=== PATIENT | female | born 1950 | race Caucasian/White ===

== ENCOUNTER 2018-12-02 07:53 | Inpatient (IN) | payer MEDICARE ==
[2018-12-02] MEDS: SODIUM CHLORIDE 0.9% 1L BAG IV* (08:22)
[2018-12-02] MEDS: ONDANSETRON 4 MG INJ IV (08:30)
[2018-12-02 08:34] LABS: WHITE BLOOD COUNT 13.9 10^3/ul (4.8-10.8)
[2018-12-02 08:34] LABS: HEMATOCRIT 58.7 % (37.0-47.0); HEMOGLOBIN 17.6 g/dl (12.0-16.0); MEAN CORPUSCULAR VOLUME 86.7 fl (82.0-101.0); MEAN PLATELET VOLUME 9.7 fl (7.4-10.4); NUCLEATED RED BLOOD CELLS% 0.3 /100WBC (0.0-0.0); PLATELET COUNT 369 10^3/UL (140-415); RED BLOOD COUNT 6.77 10^6/ul (4.20-5.40); RED CELL DISTRIBUTION WIDTH 20.1 % (11.5-14.5)
[2018-12-02 08:42] LABS: ADD MAN DIFF? YES; POSITIVE DIFF @See below
[2018-12-02 08:57] LABS: ALANINE AMINOTRANSFERASE 192 IU/L (13-69); ALBUMIN 4.2 g/dl (3.3-4.9); ALBUMIN/GLOBULIN RATIO 1.16; ALKALINE PHOSPHATASE 155 IU/L (42-121); ANION GAP 19 (5-13); ASPARTATE AMINO TRANSFERASE 293 IU/L (15-46); BILIRUBIN,INDIRECT 0.3 mg/dl (0-1.1); BILIRUBIN,TOTAL 0.3 mg/dl (0.2-1.3); BLOOD UREA NITROGEN 19 mg/dl (7-20); CALCIUM 10.1 mg/dl (8.4-10.2); CARBON DIOXIDE 22 mmol/L (21-31); CHLORIDE 95 mmol/L (97-110); CREATININE 1.33 mg/dl (0.44-1.00); Estimated GFR 40 mL/min (>60); GLUCOSE 116 mg/dl (70-220); POTASSIUM 4.7 mmol/L (3.5-5.1); SODIUM 136 mmol/L (135-144); TOTAL PROTEIN 7.8 g/dl (6.1-8.1)
[2018-12-02 08:59] LABS: INR 1.08; PROTIME 14.1 Sec (11.9-14.9); PT RATIO 1.1
[2018-12-02 09:00] LABS: PARTIAL THROMBOPLASTIN TIME 34.2 Sec (23.0-35.0)
[2018-12-02 09:02] LABS: ADD UMIC YES; UR ASCORBIC ACID 20 mg/dL (NEGATIVE); UR BACTERIA FEW /HPF (NONE SEEN); UR BILIRUBIN (Dip) NEGATIVE (NEGATIVE); UR BLOOD (Dip) 1+ mg/dL (NEGATIVE); UR CLARITY CLOUDY (CLEAR); UR COLOR AMBER (YELLOW); UR GLUCOSE (Dip) NEGATIVE (NEGATIVE); UR KETONES (Dip) TRACE mg/dL (NEGATIVE); UR LEUKOCYTE ESTERASE (Dip) 1+ Leu/ul (NEGATIVE); UR NITRITE (Dip) NEGATIVE (NEGATIVE); UR RBC 25 /HPF (0-5); UR SPECIFIC GRAVITY (Dip) 1.026 (1.003-1.030); UR SQUAMOUS EPITHELIAL CELL MODERATE /HPF (FEW); UR TOTAL PROTEIN (Dip) NEGATIVE (NEGATIVE); UR UROBILINOGEN (Dip) 1+ mg/dL (NEGATIVE); UR WBC 16 /HPF (0-5)
[2018-12-02 09:09] LABS: TROPONIN-I 0.031 ng/ml (0.000-0.120)
[2018-12-02 09:12] LABS: ANISOCYTOSIS 1+ (0-0); BAND NEUTROPHILS #M 6.3 10^3/ul (0.0-0.6); BAND NEUTROPHILS % (M) 46 % (0-4); BURR CELLS 1+ (0-0); EOSINOPHILS % (M) 3 % (0-7); GIANT THROMBO% (M) 2 % (0-0); LYMPHOCYTES #M 0.2 10^3/ul (0.8-2.9); LYMPHOCYTES % (M) 2 % (15-51); METAMYELOCYTES #M 0.1 10^3/ul (0.0-0.0); METAMYELOCYTES %M 1 % (0-0); MONOCYTE #M 0.5 10^3/ul (0.3-0.9); MONOCYTES % (M) 4 % (0-11); PLATELET ESTIMATE NORMAL; POIKILOCYTOSIS 2+ (0-0); POLYCHROMASIA 1+ (0-0); SEGMENTED NEUTROPHILS (M) % 44 % (39-77); SMUDGE%M 7 % (0-0)
[2018-12-02] MEDS: LIDOCAINE 1% (MPF) 5 ML VIAL SC (09:30)
[2018-12-02] MEDS: CEFEPIME 2GM/50 ML (PMX) 50 ML IVPB (10:18)
[2018-12-02] MEDS: VANCOMYCIN 1 GM (PMX) 250 ML IVPB (10:34)
[2018-12-02] MEDS: NORepinephrine 8MG/250 ML (PMX 250 ML IV (11:31)
[2018-12-02] MEDS: FENTAnyl 50 MCG/ML VIAL IV (12:13)
[2018-12-02] MEDS ORDERED: NACL 0.9% 3 ML SYG IV (12:30)
[2018-12-02] MEDS ORDERED: VANCOMYCIN IV PER PHARMACY XX (12:30)
[2018-12-02] MEDS ORDERED: MAGNESIUM HYDROXIDE 30ML CUP PO (13:00)
[2018-12-02] MEDS ORDERED: ACETAMINOPHEN 325 MG TAB PO (13:00)
[2018-12-02] MEDS: SOD CHLORIDE 0.9% 1,000 ML IV ×4 (13:03→22:52)
[2018-12-02] MEDS: HYDROCORTISONE 100 MG INJ IV ×3 (13:03→21:30)
[2018-12-02] MEDS: oxyCODONE (CR) 20 MG TAB [oxyCONTIN] PO (13:28)
[2018-12-02] MEDS: MEROPENEM 1 GM/50ML(PMX) 50 ML IVPB (13:28)
[2018-12-02] MEDS: FAMOTIDINE 20 MG TAB PO (13:30)
[2018-12-02 16:33] LABS: LACTIC ACID 5.2 mmol/L (0.5-2.0)
[2018-12-02] MEDS: OXYCODONE/ACETAMINOPHEN (5/325) TAB PO (17:33)
[2018-12-02] MEDS ORDERED: AMIKACIN IV PER PHARMACY XX (18:00)
[2018-12-02] MEDS: morphine 4 MG/ML VIAL IV ×2 (18:07→23:52)
[2018-12-02] MEDS: AMIKACIN 500 MG in SOD CHLORIDE 0.9% 100 ML IVPB (19:50)
[2018-12-02] MEDS: HEPARIN 5,000 UNIT/1 ML VIAL SC (21:29)
[2018-12-02] MEDS: VANCOMYCIN HCL 1.25 GM in SOD CHLORIDE 0.9% 250 ML IVPB (22:52)
[2018-12-03] MEDS: MEROPENEM 1 GM/50ML(PMX) 50 ML IVPB ×2 (01:48→13:40)
[2018-12-03] MEDS: morphine 4 MG/ML VIAL IV ×4 (04:06→19:34)
[2018-12-03 05:18] LABS: ABNORMAL IP MESSAGE 1; HEMATOCRIT 41.3 % (37.0-47.0); HEMOGLOBIN 12.7 g/dl (12.0-16.0); MEAN CORPUSCULAR HEMOGLOBIN 26.2 pg (29.0-33.0); MEAN CORPUSCULAR HGB CONC 30.8 g/dl (32.0-37.0); MEAN CORPUSCULAR VOLUME 85.3 fl (82.0-101.0); MEAN PLATELET VOLUME 10.4 fl (7.4-10.4); PLATELET COUNT 199 10^3/UL (140-415); RED BLOOD COUNT 4.84 10^6/ul (4.20-5.40)
[2018-12-03 05:18] LABS: WHITE BLOOD COUNT 11.3 10^3/ul (4.8-10.8)
[2018-12-03] MEDS: ALPRAZOLAM 0.5 MG TAB PO (05:40)
[2018-12-03 05:53] LABS: ALANINE AMINOTRANSFERASE 130 IU/L (13-69); ALBUMIN 2.2 g/dl (3.3-4.9); ALBUMIN/GLOBULIN RATIO 0.81; ALKALINE PHOSPHATASE 99 IU/L (42-121); ANION GAP 8 (5-13); ASPARTATE AMINO TRANSFERASE 103 IU/L (15-46); BILIRUBIN,INDIRECT 0.1 mg/dl (0-1.1); BILIRUBIN,TOTAL 0.1 mg/dl (0.2-1.3); BLOOD UREA NITROGEN 17 mg/dl (7-20); CALCIUM 7.3 mg/dl (8.4-10.2); CARBON DIOXIDE 18 mmol/L (21-31); CHLORIDE 110 mmol/L (97-110); CREATININE 0.64 mg/dl (0.44-1.00); Estimated GFR > 60 mL/min (>60); GLUCOSE 109 mg/dl (70-220); POTASSIUM 4.4 mmol/L (3.5-5.1); SODIUM 136 mmol/L (135-144); TOTAL PROTEIN 4.9 g/dl (6.1-8.1)
[2018-12-03 06:26] LABS: ADD MAN DIFF? YES; POSITIVE DIFF @See below
[2018-12-03] MEDS: HYDROCORTISONE 100 MG INJ IV ×3 (06:31→21:43)
[2018-12-03 07:58] LABS: ANISOCYTOSIS 1+ (0-0); BAND NEUTROPHILS #M 2.7 10^3/ul (0.0-0.6); BAND NEUTROPHILS % (M) 24 % (0-4); BURR CELLS 2+ (0-0); EOSINOPHILS % (M) 2 % (0-7); GIANT THROMBO% (M) 1 % (0-0); LYMPHOCYTES #M 0.6 10^3/ul (0.8-2.9); LYMPHOCYTES % (M) 6 % (15-51); METAMYELOCYTES #M 0.1 10^3/ul (0.0-0.0); METAMYELOCYTES %M 1 % (0-0); MONOCYTE #M 0.2 10^3/ul (0.3-0.9); MONOCYTES % (M) 2 % (0-11); PLATELET ESTIMATE NORMAL; POIKILOCYTOSIS 2+ (0-0); POLYCHROMASIA 1+ (0-0); REACTIVE LYMPHOCYTES #M 0.1 10^3/ul (0.0-0.0); REACTIVE LYMPHOCYTES% (M) 1 % (0-0); SEG NEUT #M 7.5 10^3/ul (1.6-7.5); SEGMENTED NEUTROPHILS (M) % 64 % (39-77); SMUDGE%M 8 % (0-0); SPHEROCYTES 1+ (0-0)
[2018-12-03 08:18] LABS: HEMOGLOBIN A1C 6.3 % (0-5.9)
[2018-12-03] MEDS: SOD CHLORIDE 0.9% 1,000 ML IV ×2 (08:52→12:26)
[2018-12-03] MEDS: FAMOTIDINE 20 MG TAB PO (09:23)
[2018-12-03] MEDS: VENLAFAXINE (XR) 75 MG CAP PO (09:24)
[2018-12-03] MEDS: HEPARIN 5,000 UNIT/1 ML VIAL SC ×2 (09:25→21:05)
[2018-12-03] MEDS: VANCOMYCIN 1 GM 250 ML IVPB (12:18)
[2018-12-03] MEDS: DIPHENHYDRAMINE 50 MG INJ IV (15:22)
[2018-12-03] MEDS: oxyCODONE (CR) 20 MG TAB [oxyCONTIN] PO (21:49)
[2018-12-03] MEDS: DIPHENHYDRAMINE 50 MG CAP PO (22:12)
[2018-12-04] MEDS: VANCOMYCIN 1 GM 250 ML IVPB (00:25)
[2018-12-04] MEDS: ALPRAZOLAM 0.5 MG TAB PO ×2 (00:26→11:10)
[2018-12-04] MEDS: MEROPENEM 1 GM/50ML(PMX) 50 ML IVPB ×2 (02:43→13:39)
[2018-12-04] MEDS: SOD CHLORIDE 0.9% 1,000 ML IV (05:00)
[2018-12-04] MEDS: OXYCODONE/ACETAMINOPHEN (5/325) TAB PO (05:00)
[2018-12-04 05:04] LABS: ADD MAN DIFF? NO
[2018-12-04 05:10] LABS: BASOPHILS % 0.4 % (0.0-2.0); EOSINOPHILS # 0.1 10^3/ul (0.0-0.5); EOSINOPHILS % 1.2 % (0.0-7.0); HEMATOCRIT 36.2 % (37.0-47.0); HEMOGLOBIN 11.3 g/dl (12.0-16.0); LYMPHOCYTES % 12.2 % (15.0-51.0); MEAN CORPUSCULAR HGB CONC 31.2 g/dl (32.0-37.0); MEAN CORPUSCULAR VOLUME 83.2 fl (82.0-101.0); MEAN PLATELET VOLUME 10.7 fl (7.4-10.4); MONOCYTE # 0.7 10^3/ul (0.3-0.9); MONOCYTES % 8.7 % (0.0-11.0); NEUTROPHIL # 6.3 10^3/ul (1.6-7.5); NEUTROPHILS % 76.6 % (39.0-77.0); PLATELET COUNT 154 10^3/UL (140-415); RED BLOOD COUNT 4.35 10^6/ul (4.20-5.40); RED CELL DISTRIBUTION WIDTH 18.9 % (11.5-14.5)
[2018-12-04 05:10] LABS: WHITE BLOOD COUNT 8.2 10^3/ul (4.8-10.8)
[2018-12-04 05:29] LABS: ALANINE AMINOTRANSFERASE 90 IU/L (13-69); ALBUMIN 2.1 g/dl (3.3-4.9); ALBUMIN/GLOBULIN RATIO 0.87; ALKALINE PHOSPHATASE 76 IU/L (42-121); ANION GAP 3 (5-13); ASPARTATE AMINO TRANSFERASE 44 IU/L (15-46); BILIRUBIN,INDIRECT 0.1 mg/dl (0-1.1); BILIRUBIN,TOTAL 0.1 mg/dl (0.2-1.3); BLOOD UREA NITROGEN 14 mg/dl (7-20); CALCIUM 7.6 mg/dl (8.4-10.2); CARBON DIOXIDE 24 mmol/L (21-31); CHLORIDE 111 mmol/L (97-110); CREATININE 0.53 mg/dl (0.44-1.00); Estimated GFR > 60 mL/min (>60); GLUCOSE 106 mg/dl (70-220); SODIUM 138 mmol/L (135-144); TOTAL PROTEIN 4.5 g/dl (6.1-8.1)
[2018-12-04] MEDS: HYDROCORTISONE 100 MG INJ IV ×3 (05:44→22:57)
[2018-12-04] MEDS: FAMOTIDINE 20 MG TAB PO (08:06)
[2018-12-04] MEDS: HEPARIN 5,000 UNIT/1 ML VIAL SC ×2 (08:16→20:49)
[2018-12-04] MEDS: METHYLPHENIDATE 5 MG TAB PO (16:30)
[2018-12-04] MEDS: oxyCODONE (CR) 20 MG TAB [oxyCONTIN] PO (18:02)
[2018-12-05] MEDS: MEROPENEM 1 GM/50ML(PMX) 50 ML IVPB ×2 (02:02→17:36)
[2018-12-05] MEDS: oxyCODONE (CR) 20 MG TAB [oxyCONTIN] PO (03:11)
[2018-12-05] MEDS: ALPRAZOLAM 0.5 MG TAB PO ×2 (04:29→22:59)
[2018-12-05] MEDS: HYDROCORTISONE 100 MG INJ IV ×3 (06:06→21:15)
[2018-12-05] MEDS: METHYLPHENIDATE 5 MG TAB PO (09:00)
[2018-12-05] MEDS: FAMOTIDINE 20 MG TAB PO (09:21)
[2018-12-05] MEDS: HEPARIN 5,000 UNIT/1 ML VIAL SC ×2 (09:23→21:00)
[2018-12-05] MEDS: [UNRECOGNIZED DRUG - OTHER] PO ×2 (11:00→20:59)
[2018-12-05] MEDS: oxyCODONE 5 MG TAB PO ×4 (11:06→23:00)
[2018-12-05] MEDS ORDERED: SPECIAL NON-STANDARD MEDICATION PO (18:00)
[2018-12-05] MEDS ORDERED: [UNRECOGNIZED DRUG - OTHER] PO (18:30)
[2018-12-05] MEDS: LEVALBUTEROL (NEB) 0.31 MG/3 ML AMP HHN ×2 (18:30→20:52)
[2018-12-05] MEDS: HYDROCODONE/APAP (5/325) TAB PO (20:39)
[2018-12-06] MEDS: HYDROCODONE/APAP (5/325) TAB PO ×4 (00:36→15:56)
[2018-12-06] MEDS: LEVALBUTEROL (NEB) 0.31 MG/3 ML AMP HHN ×5 (00:54→17:00)
[2018-12-06] MEDS: MEROPENEM 1 GM/50ML(PMX) 50 ML IVPB ×2 (01:00→15:56)
[2018-12-06] MEDS: oxyCODONE 5 MG TAB PO ×4 (03:49→15:00)
[2018-12-06] MEDS: HYDROCORTISONE 100 MG INJ IV ×2 (06:40→15:56)
[2018-12-06] MEDS: FAMOTIDINE 20 MG TAB PO (08:38)
[2018-12-06] MEDS: HEPARIN 5,000 UNIT/1 ML VIAL SC (08:42)
[2018-12-06] MEDS: [UNRECOGNIZED DRUG - OTHER] PO ×2 (12:01→15:56)
== END 2018-12-06 17:30 | DRG 871 ==
LOC: PP2 12-04 17:03 → E/R 07:53 → 6WM 12-03 22:55 → ICU 14:21
PROVIDERS: Internal Medicine
PROC: 02HV33Z Insertion of Infusion Device into Superior Vena Cava, Percutaneous Approach (ICD-10-PCS; principal; 2018-12-02)
PROC: B548ZZA Ultrasonography of Superior Vena Cava, Guidance (ICD-10-PCS; 2018-12-02)
DX: A41.9 Sepsis, unspecified organism (principal); R65.21 Severe sepsis with septic shock; N39.0 Urinary tract infection, site not specified; N17.9 Acute kidney failure, unspecified; L03.115 Cellulitis of right lower limb; E27.40 Unspecified adrenocortical insufficiency; J44.9 Chronic obstructive pulmonary disease, unspecified; M06.9 Rheumatoid arthritis, unspecified; M79.7 Fibromyalgia; K57.90 Diverticulosis of intestine, part unspecified, without perforation or abscess without bleeding; D25.9 Leiomyoma of uterus, unspecified; Z93.3 Colostomy status; Z87.440 Personal history of urinary (tract) infections
CPT/HCPCS: 36569; 71045; 74176; 76937; 80053; 81001; 82962; 83036; 83605; 84484; 85025; 85610; 85730; 87040-91; 87045; 87081; 87086; 93005; 93306; 94640; 94664; 96374; 96375; 99285-25